=== PATIENT | male | born 1960 | race African-American/Black ===

== ENCOUNTER 2017-10-26 09:16 | Emergency (ER) | payer BC, SELFPAY ==
[2017-10-26 11:24] LABS: Bilirubin Negative (Negative); Blood, Urine Negative (Negative); Clarity CLEAR (Clear); Glucose, Urine (Dipstick) Negative (Negative); Leukocyte Negative (Negative); Nitrite Negative (Negative); Protein, Urine (Dipstick) Trace mg/dL (Neg-Trace); Specific Gravity, Urine 1.027 (1.002-1.036); pH, Urine 6.5 (5.0-9.0)
[2017-10-26 11:58] LABS: #Lymphocytes 1.3 thou/uL (1.20-3.40); #Monocytes 0.5 thou/uL (0.11-0.59); #Neutrophils 2.5 thou/uL (1.40-6.50); %Basophils 0.3 % (0.0-1.0); %Eosinophils 0.8 % (0.0-10.0); %Lymphocytes 29.6 % (21.0-51.0); %Monocytes 12.5 % (0.0-10.0); %Neutrophils 56.9 % (42.0-75.0); Mean Corpuscular HGB CONC 33.6 g/dL (32.0-36.0); Mean Corpuscular Hemoglobin 27.9 pg (27.0-31.0); Mean Corpuscular Volume 83.2 fL (78.0-98.0); Mean Platelet Volume 5.6 fL (7.4-10.4); Platelet Count 212 thou/uL (130-400); Red Blood Cell (RBC) Count 4.66 mill/uL (4.70-6.10); White Blood Cell (WBC) Count 4.4 thou/uL (4.8-10.8)
[2017-10-26 12:12] LABS: ALT (SGPT) 42 U/L (8-55); AST (SGOT) 39 U/L (5-34); Albumin 3.9 g/dL (3.5-5.0); Alkaline Phosphatase 46 U/L (40-150); Anion Gap 10 mmol/L (10-20); BUN (Urea Nitrogen) 13 mg/dL (8.4-25.7); Bilirubin, Total 0.9 mg/dL (0.2-1.2); Calc. Creatinine Clearance 0 mL/min (70-130); Calcium 9.1 mg/dL (7.8-10.44); Carbon Dioxide 31 mmol/L (22-29); Chloride 104 mmol/L (98-107); Estimated GFR-MDRD Greater than 90; Globulin 2.8 g/dL (2.4-3.5); Glucose 88 mg/dL (70-105); Lipase 39 U/L (8-78); Potassium 3.5 mmol/L (3.5-5.1); Protein, Total 6.7 g/dL (6.0-8.3); Sodium 141 mmol/L (136-145)
[2017-10-26] MEDS ORDERED: ISOVUE-370 76%-LOCM 1 ML ONE (12:54)
[2017-10-26] MEDS ORDERED: Iopamidol 370 76% 50 ML VIAL FS ONE (12:55)
--- NOTE | 2017-10-26 13:46 | CT ---
CONTRAST ENHANCED CT IMAGES OF ABDOMEN AND PELVIS: HISTORY: Diffuse abdominal pain and diarrhea. FINDINGS: Contrast-enhanced CT images of the abdomen and pelvis were obtained after administration of IV and or al contrast. The lung bases are unremarkable. No evidence of free intraperitoneal air seen. The liver, spleen, gallbladder, pancreas, adrenal glands, and kidneys are unremarkable. No evidence of hydroureteral nephrosis seen. No evidence of paraaortic lymphadenopathy is seen. Some moderately enlarged mesenteric lymph nodes are seen. The small bowel was unremarkable. The appendix definitively is not visualized. The osseous structures are intact. IMPRESSION: Unremarkable contrast-enhanced CT images of the abdomen and pelvis. POS: [facility]
== END 2017-10-26 14:11 | disposition home or self-care (01) ==
LOC: ERS 09:16
DX: R19.7 Diarrhea, unspecified (principal)
CPT/HCPCS: 36415; 74177; 80053; 81003; 83690; 85025; 87045; 87046; 87324; 87328; 87329; 87449; 87899; 96360; 96361

== ENCOUNTER 2021-12-17 09:55 | Emergency (ER) | payer BC ==
[2021-12-17 11:15] LABS: #Lymphocytes 1.4 thou/uL (1.20-3.40); #Monocytes 0.4 thou/uL (0.11-0.59); #Neutrophils 1.3 thou/uL (1.40-6.50); %Basophils 0.3 % (0.0-1.0); %Eosinophils 1.6 % (0.0-10.0); %Lymphocytes 43.5 % (21.0-51.0); %Monocytes 13.5 % (0.0-10.0); %Neutrophils 41.2 % (42.0-75.0); Hemoglobin 14.5 g/dL (14.0-18.0); Mean Corpuscular HGB CONC 33.1 g/dL (32.0-36.0); Mean Corpuscular Hemoglobin 27.9 pg (27.0-31.0); Mean Corpuscular Volume 84.2 fL (78.0-98.0); Mean Platelet Volume 6.3 fL (7.4-10.4); Platelet Count 230 thou/uL (130-400); RBC Distribution Width 12.2 % (11.5-14.5); Red Blood Cell (RBC) Count 5.21 mill/uL (4.70-6.10); White Blood Cell (WBC) Count 3.1 thou/uL (4.8-10.8)
[2021-12-17 11:29] LABS: Calcium 9.5 mg/dL (7.8-10.44); Chloride 104 mmol/L (98-107); Glucose 100 mg/dL (70-105); Sodium 138 mmol/L (136-145)
[2021-12-17 11:30] LABS: Globulin 3.3 g/dL (2.4-3.5); Protein, Total 7.3 g/dL (6.0-8.3)
[2021-12-17] MEDS ORDERED: Ondansetron PF 4 MG/2 ML Vial ONE (11:30)
[2021-12-17] MEDS ORDERED: Morphine 4 MG/ML VIAL ONE (11:30)
[2021-12-17 11:31] LABS: Anion Gap 12 mmol/L (10-20); Bilirubin, Total 0.6 mg/dL (0.2-1.2); Carbon Dioxide 26 mmol/L (22-29)
[2021-12-17 11:32] LABS: Alkaline Phosphatase 53 U/L (40-110)
[2021-12-17 11:33] LABS: Calc. Creatinine Clearance 0 mL/min (70-130); Estimated GFR 77
[2021-12-17 11:34] LABS: BUN (Urea Nitrogen) 11 mg/dL (8.4-25.7)
[2021-12-17 11:34] LABS: Bilirubin Negative (Negative); Blood, Urine Negative (Negative); Clarity Clear (Clear); Glucose, Urine (Dipstick) Normal (Negative); Ketone, Urine Negative (Negative); Leukocyte Negative Leu/uL (Negative); Nitrite Negative (Negative); Protein, Urine (Dipstick) Negative (Neg-Trace); Specific Gravity, Urine 1.022 (1.002-1.036); Urobilinogen Normal mg/dL (Less than 2); pH, Urine 7.5 (5.0-9.0)
[2021-12-17 11:35] LABS: ALT (SGPT) 23 U/L (8-55); AST (SGOT) 20 U/L (5-34)
[2021-12-17 11:40] LABS: CK (CPK) 239 U/L (30-200); Lipase 16 U/L (8-78)
[2021-12-17] MEDS ORDERED: Iopamidol-370 76% 500 ML 1 ML ONE (12:56)
== END 2021-12-17 13:10 | disposition home or self-care (01) ==
LOC: ERS 09:55
DX: R10.30 Lower abdominal pain, unspecified (principal)
CPT/HCPCS: 36415; 74177; 80053; 81003; 83690; 85025; 96374; 96375; J2270; J2405; Q9967